=== PATIENT | female | born 1960 | race Asian ===

== ENCOUNTER 2017-04-14 18:44 | Emergency (ER) | payer SELFPAY ==
[~2017-04-14] VITALS: Ht 149.9 cm; Wt 52.7 kg
[~2017-04-14 18:44] MED LIST: FLUC200T63 PO; FOLI1 PO; GABA300C3 PO; HYDR10SO PO; HYDR10TA16 PO; METH2.5 PO; PRED20 PO; SOMA250T OR; WELL150T PO; XANA2TAB2 PO
[2017-04-14 18:46] VITALS: BP 199/91; PULSE 85; RESP 18; TEMP 97.7; O2SAT 99
--- NOTE | 2017-04-14 19:44 | PD ---
HPI Chief Complaint: Back/ Neck Pain or Injury Time Seen by Provider: 19:29 Travel History International Travel<30 days: No Contact w/Intl Traveler<30days: No Traveled to known affect area: No History of Present Illness HPI 56-year-old female presents emergency department for lower back pain with sciatica. Her is with her today. States that she has low back pain with exquisite tenderness along the lumbar and sacral spine and bilateral buttocks with radiation down the posterior aspect of the legs. She describes the pain as tingling just distal to her groin including her legs. Movement increases her pain and rest somewhat relieves her pain. She describes 2 incidents that occurred this week in which her right cheek tensed for 5 minutes , then released. She has occasional 'numbness' to the cheek as well. 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 States that she does have an extensive history of low back pain and she has received injections and ablations by pain management. States her last encounter with pain management was about a year ago and her pain is worsened over the year. She has been using [id number] medications for her pain with minimal relief. They have been trying to get in with a primary care physician however, her insurance has been difficult to work with. She denies fever, chills, trauma, loss of bowel or bladder function, weakness, illicit drug use, saddle anesthesia. She denies headache, blurred vision, shortness of breath, chest pain, nausea, vomiting, diarrhea. She has history of rheumatoid arthritis. PFSH Past Medical History Hx Anticoagulant Therapy: No Cardiovascular Problems: Yes (CHOL) Diabetes: No Musculoskeletal: Yes (RA, CHRONIC BACK PAIN) Tetanus Vaccination: Unknown Influenza Vaccination: No ?: Not : 2 Para: 2 Dilation and Curettage (D&C): Yes Past Surgical History Section: Yes Gynecologic Surgery: Yes (D & C ; POSSIBLE CERVICAL CANCER IN PAST, X 2) Social History Alcohol Use: No Tobacco Use: Yes (1/2 PPD) Substance Use: No Allergies-Medications (Allergen,Severity, Reaction): Coded Allergies: doxycycline (Unverified Allergy, Severe, 04/14/17) minocycline (Unverified Allergy, Severe, 04/14/17) tigecycline (Unverified Allergy, Severe, 04/14/17) Reported Meds & Prescriptions Reported Meds & Active Scripts Active Magic Mouthwash Adult Liq (Multi-Ingredient Mouthwash/Gargle) 120 Ml Susp 10 Ml SWISH-SWAL ACHS 10 Days Each 5mL contains: Nystatin 200,000units, Diphenhydramine 4.25mg, Viscous Lidocaine 10mg, Means syrup 0.8 mL Ibuprofen 800 Mg Tab 800 Mg PO Q8H PRN 10 Days Medrol Dosepak (Methylprednisolone) 4 Mg Dspk 4 Mg PO DIRECTED Per Pharmacist direction Review of Systems Except as stated in HPI: all other systems reviewed are Neg Physical Exam Narrative GENERAL: Well-developed well-nourished in mild distress SKIN: Focused skin assessment warm/dry. HEAD: Atraumatic. Normocephalic. EYES: Pupils equal and round. No scleral icterus. No injection or drainage. ENT: No nasal bleeding or discharge. Mucous membranes pink and moist. Tongue- white patches NECK: Trachea midline. No JVD. CARDIOVASCULAR: Regular rate and rhythm. No murmur appreciated. RESPIRATORY: No accessory muscle use. Clear to auscultation. Breath sounds equal bilaterally. GASTROINTESTINAL: Abdomen soft, non-tender, nondistended. Hepatic and splenic margins not palpable. MUSCULOSKELETAL: No obvious deformities. No clubbing. No cyanosis. No edema. BACK: No CVA tenderness. No rash. Exquisite tenderness to the sacrum and L4 region of the spine. Tenderness to the bilateral glut NEUROLOGICAL: Awake and alert. No obvious cranial nerve deficits. Motor grossly within normal limits, although painful to lower extremities. Normal speech. PSYCHIATRIC: Appropriate mood and affect; insight and judgment normal. Data Data Last Documented VS Vital Signs Date Time Temp Pulse Resp B/P (MAP) Pulse Ox O2 Delivery O2 Flow Rate FiO2 04/14/17 22:36 04/14/17 22:31 78 18 96 Room Air 04/14/17 18:46 97.7 Orders Orders Comprehensive Metabolic Panel (04/14/17 19:44) Complete Blood Count With Diff (04/14/17 19:44) Westergren Sedimentation Rate (04/14/17 19:44) C-Reactive Protein (Crp) (04/14/17 19:44) Methylprednisolone So Succ Inj (Solumedr (04/14/17 19:45) Ketorolac Inj (Toradol Inj) (04/14/17 19:45) Ct Lumb Spine W/O Contrast (04/14/17 ) Acetamin-Hydrocod 325-7.5 Mg (Cable 7.5 (04/14/17 21:45) Labs Laboratory Tests Test 04/14/17 20:37 04/14/17 21:06 White Blood Count 7.5 TH/MM3 Red Blood Count 3.53 MIL/MM3 Hemoglobin 11.6 GM/DL Hematocrit 35.2 % Mean Corpuscular Volume 99.6 FL Mean Corpuscular Hemoglobin 32.7 PG Mean Corpuscular Hemoglobin Concent 32.9 % Red Cell Distribution Width 16.4 % Platelet Count 384 TH/MM3 Mean Platelet Volume 7.9 FL Neutrophils (%) (Auto) 49.4 % Lymphocytes (%) (Auto) 42.5 % Monocytes (%) (Auto) 4.7 % Eosinophils (%) (Auto) 2.1 % Basophils (%) (Auto) 1.3 % Neutrophils # (Auto) 3.6 TH/MM3 Lymphocytes # (Auto) 3.2 TH/MM3 Monocytes # (Auto) 0.4 TH/MM3 Eosinophils # (Auto) 0.2 TH/MM3 Basophils # (Auto) 0.1 TH/MM3 CBC Comment DIFF FINAL Differential Comment Erythrocyte Sedimentation Rate 34 mm/hr Blood Urea Nitrogen 16 MG/DL Creatinine 0.66 MG/DL Random Glucose 115 MG/DL Total Protein 7.6 GM/DL Albumin 3.8 GM/DL Calcium Level 8.7 MG/DL Alkaline Phosphatase 91 U/L Aspartate Amino Transf (AST/SGOT) 25 U/L Alanine Aminotransferase (ALT/SGPT) 36 U/L Total Bilirubin 0.2 MG/DL Sodium Level 140 MEQ/L Potassium Level 4.2 MEQ/L Chloride Level 106 MEQ/L Carbon Dioxide Level 26.6 MEQ/L Anion Gap 7 MEQ/L Estimat Glomerular Filtration Rate 93 ML/MIN C-Reactive Protein LESS THAN 0.29 MG/DL MDM Medical Decision Making Medical Screen Exam Complete: Yes Emergency Medical Condition: Yes Differential Diagnosis Sciatica versus lumbago versus muscle spasms Oral candidiasis versus infection versus dehydration Narrative Course 56-year-old female presents emergency department for lower back pain with sciatica. Her is with her today. States that she has low back pain with exquisite tenderness along the lumbar and sacral spine and bilateral buttocks with radiation down the posterior aspect of the legs. She describes the pain as tingling just distal to her groin including her legs. Movement increases her pain and rest somewhat relieves her pain. She describes 2 incidents that occurred this week in which her right cheek tensed for 5 minutes , then released. She has occasional 'numbness' to the cheek as well. 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 States that she does have an extensive history of low back pain and she has received injections and ablations by pain management. States her last encounter with pain management was about a year ago and her pain is worsened over the year. She has been using lnje-uwa-lwszjwc medications for her pain with minimal relief. They have been trying to get in with a primary care physician however, her insurance has been difficult to work with. She denies fever, chills, trauma, loss of bowel or bladder function, weakness, illicit drug use, saddle anesthesia, personal history of cancer. She denies headache, blurred vision, shortness of breath, chest pain, nausea, vomiting, diarrhea. She has history of rheumatoid arthritis. Physical exam demonstrated TTP to multiple areas of her body but focused in the lower lumber and sacral area with apparent weakness vs painful movements. No evidence of [place] or Trousseau's. Because of multiple complaints and unclear etiology, ordered labs with calcium, CT lumbar spine. Labs- slight elevation in CRP, consistent with RA diagnosis. Imaging- No acute process, although multiple chronic changes noted on study. Patient complained of intense pain during the visit so administered hydrocodone for pain relief in the ED. Pt given Medrol dose pack, magic mouthwash, and ibuprofen. Strongly advised pt to follow up with PCP and Pain Management as we cannot prescribe chronic pain medications. Diagnosis Primary Impression: Oral candidiasis Additional Impression: Lumbago Qualified Codes: M54.42 - Lumbago with sciatica, left side; M54.41 - Lumbago with sciatica, right side Referrals: [facility] Additional Instructions: Take medications as prescribed Perform light stretches of the lower back and legs, and alternate heat and ice packs. If you develop increased pain, weakness, fever, chills, or bowel or bladder issues, return to the ED for further treatment and evaluation. Follow up with your primary care physician in 2-3 days. Scripts Khsqhptx-Qnudamhkvvmvnvy-Jckydcdli Liq (Magic Mouthwash Adult Liq) 120 Ml Susp 10 ML SWISH-SWAL ACHS for Mouth sores for 10 Days, #120 ML 0 Refills Each 5mL contains: Nystatin 200,000units, Diphenhydramine 4.25mg, Viscous Lidocaine 10mg, Means syrup 0.8 mL Prov: Mell Turcios MD 04/14/17 Ibuprofen (Ibuprofen) 800 Mg Tab 800 MG PO Q8H Y for Pain/Inflammation for 10 Days, #30 TAB 0 Refills Prov: Mell Turcios MD 04/14/17 Methylprednisolone Dosepak (Medrol Dosepak) 4 Mg Dspk 4 MG PO DIRECTED, #1 DSPK 0 Refills Per Pharmacist direction Prov: Mell Turcios MD 04/14/17 Disposition: 01 DISCHARGE HOME Condition: Stable Porsche Calderon Apr 14, 2017 19:44
[2017-04-14] MEDS ORDERED: methylPREDNISolone SOD SUCC 125 MG/2 ML VIAL IV PUSH ONE (19:45)
[2017-04-14] MEDS ORDERED: KETOROLAC TROMETHAMINE 60 MG/2 ML (IM) VIAL IM ONE (19:45)
[2017-04-14 20:53] LABS: AUTOMATED NEUTROPHIL # 3.6 TH/MM3 (1.8-7.7); BASOPHIL # 0.1 TH/MM3 (0-0.2); BASOPHIL % 1.3 % (0.0-2.0); EOSINOPHIL # 0.2 TH/MM3 (0-0.4); EOSINOPHIL % 2.1 % (0.0-4.0); HEMATOCRIT 35.2 % (35.0-46.0); HEMO FLAGS DIFF FINAL; LYMPH % 42.5 % (9.0-44.0); LYMPHOCYTE # 3.2 TH/MM3 (1.0-4.8); MEAN CELL VOLUME 99.6 FL (80.0-100.0); MEAN CORPUSCULAR HEMOGLOBIN 32.7 PG (27.0-34.0); MEAN CORPUSCULAR HGB CONC 32.9 % (32.0-36.0); MONO % 4.7 % (0.0-8.0); NEUT % 49.4 % (16.0-70.0); PLATELET COUNT 384 TH/MM3 (150-450); RED BLOOD COUNT 3.53 MIL/MM3 (4.00-5.30); RED CELL DISTRIBUTION WIDTH 16.4 % (11.6-17.2); WHITE BLOOD COUNT 7.5 TH/MM3 (4.0-11.0)
--- NOTE | 2017-04-14 21:02 | RADRPT ---
EXAM DATE/TIME: 04/14/2017 20:18 [facility] COMPARISON: No previous studies available for comparison. INDICATIONS : Lower back pain radiating down bilateral legs. RADIATION DOSE: 17.54 CTDIvol (mGy) MEDICAL HISTORY : carcinoma, cervical SURGICAL HISTORY : section. Tubal ligation. ENCOUNTER: Initial ACUITY: 3 days PAIN SCALE: 9/10 LOCATION: Bilateral lower back TECHNIQUE: Volumetric scanning of the lumbar spine was performed. Multiplanar reconstructions in the sagittal, coronal and oblique axial planes were performed. Using automated exposure control and adjustment of the mA and/or kV according to patient size, radiation dose was kept as low as reasonably achievable t o obtain optimal diagnostic quality images. DICOM format image data is available electronically for review and comparison. FINDINGS: VERTEBRAE: Normal vertebral body height. ALIGNMENT: There is grade 1 anterior spondylolisthesis of L4 on L5 of approximately 4-5 mm. The disc spaces are fairly well-preserved with mild anterior hypertrophic change. There are mild vacuum disc phenomena. T here is a mild scoliosis. The sacrum appears unremarkable. T12-L1: The thecal sac has a normal diameter. No evidence of disc bulge or protrusion. The neural foramina are patent bilaterally. L1-L2: The thecal sac has a normal diameter. No evidence of disc bulge or protrusion. The neural foramina are patent bilaterally. L2-L3: The thecal sac has a normal diameter. No evidence of disc bulge or protrusion. The neural foramina are patent bilaterally. L3-L4: There is a moderate annular disc bulge with flattening of the anterior thecal sac and narrowing of th e neural foramina bilaterally. There are degenerative changes involving facet joints with mild centra l canal stenosis. L4-L5: There is a moderate disc bulge with flattening of the anterior thecal sac and narrowing of the neural foramina bilaterally. Extensive degenerative changes are noted involving the facet joints with moder ate to severe central canal stenosis. The residual AP diameter of the canal measures 5 mm and the res idual transverse diameter measures approximate 7 mm. L5-S1: Broad-based bulge versus protrusion with flattening of the anterior thecal sac. This meets the transi ting S1 nerve roots but no definite mass effect. There is narrowing of the neural foramina bilaterall y. There are degenerative changes involving the facet joints. CONCLUSION: 1. Moderate to severe central canal stenosis at L4-5 secondary to disc bulge, degenerative change and grade 1 anterior spondylolisthesis. 2. Mild central canal stenosis at L3-4 secondary to disc bulge and degenerative change involving the facets. 3. Based bulge versus protrusion at L5-S1 with flattening the anterior thecal sac. This meets the tra nsiting S1 nerve roots 4. Degenerative joint changes of the lower facets. Anurag Hooker MD on April 14, 2017 at 20:56 Board Certified Radiologist. This report was verified electronically.
[2017-04-14 21:21] LABS: CHLORIDE 106 MEQ/L (98-107); POTASSIUM 4.2 MEQ/L (3.5-5.1); SODIUM (NA) 140 MEQ/L (136-145)
[2017-04-14] MEDS ORDERED: MEDR4PAK PO (21:21)
[2017-04-14] MEDS ORDERED: IBUP1TAB7 PO (21:21)
[2017-04-14] MEDS ORDERED: MAGICADU2 SWISH-SWAL (21:21)
[2017-04-14 21:26] LABS: ANION GAP 7 MEQ/L (5-15); BICARBONATE 26.6 MEQ/L (21.0-32.0)
[2017-04-14 21:27] LABS: BLOOD UREA NITROGEN 16 MG/DL (7-18)
[2017-04-14 21:29] LABS: ALT (GPT) 36 U/L (10-53)
[2017-04-14 21:30] LABS: AST (GOT) 25 U/L (15-37); GLOMERULAR FILTRATION RATE 93 ML/MIN (>89)
[2017-04-14 21:32] LABS: ALKALINE PHOSPHATASE 91 U/L (45-117)
[2017-04-14 21:35] LABS: TOTAL BILIRUBIN ADULT 0.2 MG/DL (0.2-1.0)
[2017-04-14] MEDS ORDERED: ACETAMINOPHEN/HYDROcodone 325 MG/7.5 MG TAB PO ONE (21:45)
[2017-04-14 22:31] VITALS: BP 178/98; PULSE 78; RESP 18; O2SAT 96
== END 2017-04-14 22:52 | disposition home or self-care (01) ==
LOC: PHED 18:44
DX: B37.0 Candidal stomatitis (principal); M54.41 Lumbago with sciatica, right side; M54.42 Lumbago with sciatica, left side; F17.200 Nicotine dependence, unspecified, uncomplicated; M06.9 Rheumatoid arthritis, unspecified
CPT/HCPCS: 72131; 80053; 85025; 85652; 86140; 96372; 96374; 99285; J1885; J2930